=== PATIENT | male | born 1955 | race Caucasian/White ===

== ENCOUNTER 2016-11-25 21:25 | Emergency (ER) | payer OTHER | END 2016-11-25 21:30 | disposition left against medical advice (07) | LOC: CED 21:25 | DX: Z53.21 Procedure and treatment not carried out due to patient leaving prior to being seen by health care provider (principal) ==

== ENCOUNTER 2017-03-03 16:50 | Emergency (ER) | payer OTHER ==
[~2017-03-03] VITALS: Ht 177.8 cm; Wt 72.6 kg
--- NOTE | ~2017-03-03 | EKG ---
PATIENT: RAVI ERICKSON UNIT #: [id number] Ventricular Rate: 59 BPM Atrial Rate: 59 BPM P-R Interval: 128 ms QRS Duration: 94 ms Q-T Interval: 434 ms QTC Calculation(Bezet): 429 ms P [place]: 55 degrees Calculated R [place]: 60 degrees Calculated T [place]: 62 degrees Diagnosis Line: Sinus bradycardia Diagnosis Line: Nonspecific T wave abnormality Diagnosis Line: Abnormal ECG Diagnosis Line: When compared with ECG of 06-MAR-2015 10:11, Diagnosis Line: Nonspecific T wave abnormality now evident in Diagnosis Line: Lateral leads Diagnosis Line: Confirmed by JO ZAVALA MD ([id number]) on 03/05/2017 Diagnosis Line: 11:01:22 PM INTERPRETING MD: LUCAS QUINN
--- NOTE | ~2017-03-03 | CR72 ---
[facility] A Service of [facility] RADIOLOGY TEXT RESULTS PATIENT: RAVI ERICKSON LOCATION: [facility] : 57 UNIT #: [id number] AGE: [address]: Chico Jara MD SEX: M ORDER DR: [id number] [place], [place] [address] [id number] E MR#: [id number] Acc #: [id number] NAME: RAVI ERICKSON : 1955 SEX: M STUDY DATE/TIME: 03/03/2017 20:16 UNIT: [facility] ROOM: STUDY DESCRIPTION: CR Chest Single View Portable Attending Physician: Chico Jara M.D. Ordering Physician: Chico Jara M.D. Primary Care Physician: No Primary Care Physician MEDICAL IMAGING REPORT This report is preliminary unless electronic signature is present EXAM Portable chest. INDICATIONS Shortness of air, cough and chest pain for 10 days. DATE OF EXAM 03/03/2017 COMPARISON 10/18/2014 FINDINGS A portable view of the chest was obtained. The heart size and vascularity are normal. Lungs are clear, except for calcified left lung granuloma. The bones are unremarkable. IMPRESSION No active disease. Dictated by... Jacob Gonsales M.D. THIS IS AN ELECTRONICALLY VERIFIED REPORT Jacob Gonsales M.D. at 03/04/2017 7:58 PM KASANDRA/lorenzo TD: 03/04/2017 17:30 JOB #: [id number] [facility] A Service of [facility] RADIOLOGY TEXT RESULTS PATIENT: RAVI ERICKSON LOCATION: [facility] : 57 UNIT #: [id number] AGE: [address]: Chico Jara MD SEX: M ORDER DR: MEDICAL IMAGING REPORT Page 1 of 1 COPY
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
[2017-03-03 19:33] LABS: URINE SOURCE CLEAN CATCH
[2017-03-03 19:40] LABS: URINE APPEARANCE CLEAR; URINE BILIRUBIN NEG (NEG); URINE BLOOD NEG (NEG); URINE COLOR YELLOW; URINE GLUCOSE NEG (NEG); URINE KETONE NEG (NEG); URINE LEUKOCYTE ESTERASE NEG (NEG); URINE NITRATE NEG (NEG); URINE PROTEIN NEG (NEG); URINE SPECIFIC GRAVITY 1.018 (1.003-1.035)
[2017-03-03 19:53] LABS: CULTURE INDICATED? NO
[2017-03-03 20:00] LABS: AMPHETAMINE POS (NEG); BARBITURATES NEG (NEG); BENZODIAZEPINES NEG (NEG); COCAINE NEG (NEG); MARIJUANA POS (NEG); OPIATES NEG (NEG); TRICYCLIC ANTIDEPRESSANTS POS (NEG); U METHADONE NEG (NEG)
[2017-03-03 20:25] LABS: BASOPHIL# 0.1 X10e3 (0-0.3); BASOPHIL% 0.9 % (0-2.5); EOSINOPHIL# 0.3 X10e3 (0-0.7); EOSINOPHIL% 3.3 % (0.0-7.0); HEMATOCRIT 41.6 % (38.0-50.0); HEMOGLOBIN 13.7 gm/dL (13.0-16.0); LYMPHOCYTE# 3.3 X10e3 (1.0-3.5); LYMPHOCYTE% 32.7 % (17.0-45.0); MEAN CELL VOLUME 93.8 FL (83-96); MEAN CORPUSCULAR HEMOGLOBIN 30.8 PG (28-34); MEAN CORPUSCULAR HGB CONC 32.9 g/dL (30-36); MEAN PLATELET VOLUME 9.4 FL (6.5-11.5); MONOCYTE# 1.3 X10e3 (0-1.0); MONOCYTE% 12.8 % (3.0-12.0); NEUTROPHIL# 5.1 X10e3 (1.5-7.1); NEUTROPHIL% 50.3 % (40-75); PLATELET COUNT 184 X10e3 (140-420); RED BLOOD COUNT 4.43 X10e (3.90-5.60); WHITE BLOOD COUNT 10.2 X10e3 (4.0-10.5)
[2017-03-03 20:27] LABS: DIFF IND NO
[2017-03-03 20:37] LABS: POC - CKMB <1.0 ng/mL (0.0-7.9); POC - TROPONIN <0.05 ng/mL (<=0.05)
[2017-03-03 20:49] LABS: ALBUMIN SERUM 3.4 g/dL (3.5-5.0); BILIRUBIN, DIRECT 0.4 mg/dL (0.0-0.2); BILIRUBIN,INDIRECT 0.7 mg/dL (0.0-0.9); BILIRUBIN,TOTAL 1.1 mg/dL (0.2-2.0); BUN/CREATININE RATIO 17.5; CALCIUM SERUM 9.2 mg/dL (8.4-10.2); CREATININE SERUM 0.8 mg/dL (0.6-1.4); GLOM FILT RATE Estimated 97.1 mL/min (>60); PROTEIN TOTAL SERUM 7.1 g/dL (6.0-8.3)
[2017-03-03 20:52] LABS: LIPASE 32 U/L (22-51)
[2017-03-03 20:57] LABS: ALCOHOL BLOOD <5 mg/dL (0)
[2017-03-03 23:25] LABS: POC - CKMB <1.0 ng/mL (0.0-7.9); POC - TROPONIN <0.05 ng/mL (<=0.05)
[2017-03-03 23:50] LABS: PARTIAL THROMBOPLASTIN TIME 28.1 SECONDS (23.5-31.3); PROTHROMBIN TIME (PATIENT) 11.3 SECONDS (10.0-11.7)
== END 2017-03-04 00:25 | disposition home or self-care (01) ==
LOC: CED 16:50
PROVIDERS: Emergency Medicine
DX: E11.9 Type 2 diabetes mellitus without complications (principal); J40 Bronchitis, not specified as acute or chronic; R79.89 Other specified abnormal findings of blood chemistry; R11.0 Nausea; F31.9 Bipolar disorder, unspecified; F17.200 Nicotine dependence, unspecified, uncomplicated; Z88.6 Allergy status to analgesic agent; Z88.5 Allergy status to narcotic agent; Z88.8 Allergy status to other drugs, medicaments and biological substances
CPT/HCPCS: 36415; 71010; 74177; 80048; 80076; 80307; 81003; 82550; 82553; 82947; 83690; 84484; 85025; 85379; 85610; 85730; 93005; 99284; G0480; Q9967